=== PATIENT | male | born 1970 | race Caucasian/White ===

== ENCOUNTER 2020-08-02 17:16 | Outpatient (REF) | payer OTHER, SELFPAY ==
[2020-08-02 21:10] LABS: Abs Immature Grans 0.05 10^3/uL (0.0-0.06); Absolute Basophil Count 0.08 10^3/uL (0.0-0.2); Absolute Eosinophil Count 0.73 10^3/uL (0.0-0.7); Absolute Monocyte Count 1.28 10^3/uL (0.1-0.8); Basophils % 0.7; Eosinophils % 6.1; HCT 33.3 % (40.0-50.0); Immature Grans % 0.4; Lymphocytes % 15.6; MCH 31.1 pg (27.0-33.0); MCV 94.1 fL (80-95); MPV 9.1 fL (8.0-11.0); Monocytes % 10.7; Neutrophils % 66.5; Nucleated RBC 0 %; RBC 3.54 10^6/uL (4.36-5.78); RDW 13.7 % (11.8-14.1); WBC 11.96 10^3/uL (4.4-10.8)
[2020-08-02 21:13] LABS: Absolute Lymphocyte Count 1.87 10^3/uL (1.2-3.4); Absolute Neutrophil Count 7.95 10^3/uL (1.2-6.7)
[2020-08-02 21:42] LABS: Platelet Count 764 10^3/uL (130-400)
[2020-08-02 22:21] LABS: Diff Comment PLT Morph Reviewed; RBC Morphology Normal
[2020-08-04 18:31] LABS: COVID-19 RT-PCR UVMMC Result Negative (Negative)
== END 2020-08-02 17:17 | disposition home or self-care (01) ==
LOC: NCHCN 17:16
PROVIDERS: PCP Internal Medicine; Visit Provider Nurse Practitioner Community Health
DX: R10.9 Unspecified abdominal pain (principal); Z20.822 Contact with and (suspected) exposure to COVID-19; R09.81 Nasal congestion
CPT/HCPCS: U0003; 85025

== ENCOUNTER 2020-08-04 13:48 | Outpatient (REF) | payer OTHER, SELFPAY ==
[2020-08-04 22:12] LABS: Abs Immature Grans 0.07 10^3/uL (0.0-0.06); Absolute Basophil Count 0.09 10^3/uL (0.0-0.2); Absolute Eosinophil Count 0.84 10^3/uL (0.0-0.7); Absolute Lymphocyte Count 2.53 10^3/uL (1.2-3.4); Absolute Monocyte Count 0.98 10^3/uL (0.1-0.8); Basophils % 0.8; Eosinophils % 7.9; HCT 34.3 % (40.0-50.0); HGB 11.2 g/dL (13.5-17.5); Immature Grans % 0.7; Lymphocytes % 23.8; MCH 30.6 pg (27.0-33.0); MCHC 32.7 % (32.0-36.0); MCV 93.7 fL (80-95); MPV 9.1 fL (8.0-11.0); Monocytes % 9.2; Neutrophils % 57.6; Nucleated RBC 0 %; RBC 3.66 10^6/uL (4.36-5.78); RDW 13.8 % (11.8-14.1); RDW-SD 47.1 fL; WBC 10.61 10^3/uL (4.4-10.8)
[2020-08-04 22:35] LABS: Diff Comment PLT Morph Reviewed; Platelet Count 941 10^3/uL (130-400); RBC Morphology Normal
[2020-08-04 22:42] LABS: ALT 57 U/L (16-63); AST 40 U/L (15-37); Albumin 2.3 g/dL (3.4-5.0); Alkaline Phosphatase 115 U/L (46-116); Anion Gap 9.7 mmol/L (3-11); BUN 13 mg/dL (7-18); Bilirubin, Total 0.3 mg/dL (0.2-1.0); CO2 29.3 mmol/L (21.0-32.0); Calcium 8.7 mg/dL (8.5-10.1); Chloride 101 mmol/L (98-107); Glucose 103 mg/dL (74-106); Potassium 4.8 mmol/L (3.5-5.1); Sodium 140 mmol/L (136-145); Total Protein 6.5 g/dL (6.4-8.2)
== END 2020-08-04 13:49 | disposition home or self-care (01) ==
LOC: NCHCN 13:48
PROVIDERS: PCP Internal Medicine; Visit Provider Family Medicine
DX: D47.3 Essential (hemorrhagic) thrombocythemia (principal); R10.9 Unspecified abdominal pain
CPT/HCPCS: 80053; 85007; 85025

== ENCOUNTER 2020-08-09 14:45 | Outpatient (REF) | payer OTHER, SELFPAY ==
[2020-08-09 14:13] LABS: Absolute Eosinophil Count 0.29 10^3/uL (0.0-0.7); Absolute Lymphocyte Count 2.21 10^3/uL (1.2-3.4); Absolute Monocyte Count 0.59 10^3/uL (0.1-0.8); Absolute Neutrophil Count 6.31 10^3/uL (1.2-6.7); HCT 31.6 % (40.0-50.0); HGB 10.3 g/dL (13.5-17.5); Immature Grans % 0.4; Lymphocytes % 23.2; MCH 30.7 pg (27.0-33.0); MCHC 32.6 % (32.0-36.0); MCV 94.3 fL (80-95); MPV 8.3 fL (8.0-11.0); Monocytes % 6.2; Neutrophils % 66.2; Nucleated RBC 0 %; RBC 3.35 10^6/uL (4.36-5.78); RDW 14.1 % (11.8-14.1); RDW-SD 49.1 fL; WBC 9.54 10^3/uL (4.4-10.8)
[2020-08-09 14:28] LABS: ALT 39 U/L (16-63); AST 29 U/L (15-37); Albumin 2.4 g/dL (3.4-5.0); Alkaline Phosphatase 110 U/L (46-116); BUN 15 mg/dL (7-18); Bilirubin, Total 0.3 mg/dL (0.2-1.0); Calcium 8.5 mg/dL (8.5-10.1); Chloride 104 mmol/L (98-107); Glucose 65 mg/dL (74-106); Potassium 4.8 mmol/L (3.5-5.1); Sodium 142 mmol/L (136-145); Total Protein 6.6 g/dL (6.4-8.2)
[2020-08-09 14:35] LABS: Platelet Count 1083 10^3/uL (130-400)
[2020-08-09 14:36] LABS: Abs Immature Grans 0.04 10^3/uL (0.0-0.06); Diff Comment Diff Reviewed; RBC Morphology Normal
== END 2020-08-09 14:46 | disposition home or self-care (01) ==
LOC: NCHCN 14:45
PROVIDERS: PCP Internal Medicine; Visit Provider Family Medicine
DX: D47.3 Essential (hemorrhagic) thrombocythemia (principal)
CPT/HCPCS: 80053; 85025

== ENCOUNTER 2020-08-18 21:51 | Outpatient (REF) | payer OTHER, SELFPAY ==
[2020-08-18 14:09] LABS: HCT 34.1 % (40.0-50.0); HGB 10.9 g/dL (13.5-17.5); MCH 30.2 pg (27.0-33.0); MCV 94.5 fL (80-95); MPV 8.8 fL (8.0-11.0); RBC 3.61 10^6/uL (4.36-5.78); RDW 15.1 % (11.8-14.1); WBC 6.29 10^3/uL (4.4-10.8)
[2020-08-19 07:22] LABS: Platelet Count 904 10^3/uL (130-400)
== END 2020-08-18 21:52 | disposition home or self-care (01) ==
LOC: NCHCN 21:51
PROVIDERS: PCP Internal Medicine; Visit Provider Nurse Practitioner Community Health
DX: D47.3 Essential (hemorrhagic) thrombocythemia (principal)
CPT/HCPCS: 85027

== ENCOUNTER 2020-10-05 10:03 | Outpatient (REF) | payer OTHER, SELFPAY ==
[2020-10-05 13:35] LABS: HCT 39.2 % (40.0-50.0); HGB 12.9 g/dL (13.5-17.5); MCH 30.5 pg (27.0-33.0); MCHC 32.9 % (32.0-36.0); MCV 92.7 fL (80-95); MPV 10.1 fL (8.0-11.0); Platelet Count 462 10^3/uL (130-400); RBC 4.23 10^6/uL (4.36-5.78); RDW 13.8 % (11.8-14.1); RDW-SD 46.7 fL; WBC 6.21 10^3/uL (4.4-10.8)
[2020-10-06 11:16] LABS: HIV-1/2 Ag & Ab Screen Negative (Negative)
== END 2020-10-05 10:04 | disposition home or self-care (01) ==
LOC: NCHCN 10:03
PROVIDERS: PCP Internal Medicine; Visit Provider Internal Medicine
DX: D47.3 Essential (hemorrhagic) thrombocythemia (principal); Z11.4 Encounter for screening for human immunodeficiency virus [HIV]
CPT/HCPCS: 85027; 87389

== ENCOUNTER 2022-09-04 18:37 | Outpatient (REF) | payer BC, SELFPAY ==
[2022-09-04 21:54] LABS: Abs Immature Grans 0.02 10^3/uL (0.0-0.06); Absolute Basophil Count 0.08 10^3/uL (0.0-0.2); Absolute Eosinophil Count 0.24 10^3/uL (0.0-0.7); Absolute Lymphocyte Count 1.75 10^3/uL (1.2-3.4); Absolute Monocyte Count 0.56 10^3/uL (0.1-0.8); Absolute Neutrophil Count 3.19 10^3/uL (1.2-6.7); Basophils % 1.4; Eosinophils % 4.1; HCT 39.5 % (40.0-50.0); HGB 13.1 g/dL (13.5-17.5); Immature Grans % 0.3; MCH 30.5 pg (27.0-33.0); MCHC 33.2 % (32.0-36.0); MCV 92 fL (80-95); MPV 9.3 fL (8.0-11.0); Monocytes % 9.6; Neutrophils % 54.6; Platelet Count 421 10^3/uL (130-400); RBC 4.29 10^6/uL (4.36-5.78); RDW 14.5 % (11.8-14.1); RDW-SD 48.9 fL; WBC 5.84 10^3/uL (4.4-10.8)
[2022-09-04 22:28] LABS: Iron 119 ug/dL (65-175); Total Iron Binding Capacity 308 ug/dL (250-450); Transferrin Sat 39 % (20-55)
[2022-09-04 22:40] LABS: Calculated LDL 119 mg/dL (<100); Cholesterol 183 mg/dL (<200); Ferritin 19 ng/mL (26-388); HDL Cholesterol 46 mg/dL (40-60); Triglyceride 91 mg/dL (<150)
== END 2022-09-04 18:38 | disposition home or self-care (01) ==
LOC: NCHCN 18:37
PROVIDERS: PCP Internal Medicine; Visit Provider Internal Medicine
DX: D64.9 Anemia, unspecified (principal); Z13.220 Encounter for screening for lipoid disorders
CPT/HCPCS: 80061; 82728; 83540; 83550; 85025

== ENCOUNTER 2024-01-23 16:12 | Outpatient (REF) | payer BC, SELFPAY ==
[2024-01-23 21:57] LABS: ALT 24 U/L (16-63); AST 23 U/L (15-37); Albumin 2.4 g/dL (3.4-5.0); Alkaline Phosphatase 89 U/L (46-116); Anion Gap 8.3 mmol/L (3-11); BUN 21 mg/dL (7-18); Bilirubin, Total 0.42 mg/dL (0.2-1.0); CO2 26.7 mmol/L (21.0-32.0); CREATININE 1.1 mg/dL (0.70-1.30); Calcium 8.6 mg/dL (8.5-10.1); Chloride 96 mmol/L (98-107); Estimated GFR 80.77 (mL/min/1.73m2); Glucose 94 mg/dL (74-106); Potassium 4.7 mmol/L (3.5-5.1); Sodium 131 mmol/L (136-145); Total Protein 6.6 g/dL (6.4-8.2)
[2024-01-24 23:37] LABS: Campylobacter PCR Negative (Negative); Salmonella PCR Negative (Negative); Shiga Toxin PCR Negative (Negative); Shigella/Enteroinvasive Ecoli Negative (Negative)
== END 2024-01-23 16:13 | disposition home or self-care (01) ==
LOC: NCHCN 16:12
PROVIDERS: PCP Internal Medicine; Visit Provider Internal Medicine
DX: R19.7 Diarrhea, unspecified (principal)
CPT/HCPCS: 80053; 87505

== ENCOUNTER 2024-02-08 22:19 | Outpatient (REF) | payer BC, SELFPAY | END 2024-02-08 22:20 | disposition home or self-care (01) | LOC: NCHCN 22:19 | PROVIDERS: PCP Internal Medicine; Visit Provider Internal Medicine | DX: R19.7 Diarrhea, unspecified (principal) | CPT/HCPCS: 87177 ==